=== PATIENT | male | born 1985 | race Hispanic/Latino ===

== ENCOUNTER 2018-01-10 15:37 | Emergency (ER) | payer SELFPAY | END 2018-01-10 16:09 | disposition home or self-care (01) | LOC: EDH 15:37 | DX: L72.9 Follicular cyst of the skin and subcutaneous tissue, unspecified (principal); Z87.891 Personal history of nicotine dependence ==

== ENCOUNTER 2021-07-15 13:27 | Emergency (ER) | payer SELFPAY ==
[~2021-07-15] VITALS: Ht 162.6 cm; Wt 79.4 kg
[2021-07-15 13:29] VITALS: BP 132/76
[2021-07-15] MEDS ORDERED: DOXY-252 PO (14:26)
[2021-07-15] MEDS ORDERED: AZITHROMYCIN 250 MG TABLET PO ONE (14:30)
[2021-07-15] MEDS ORDERED: CEFTRIAXONE 500MG VIAL IM ONE (14:30)
[2021-07-15] MEDS ORDERED: LIDOCAINE HCL-MPF 1% 2ML VIAL ONE (14:39)
== END 2021-07-15 14:53 | disposition home or self-care (01) ==
LOC: EDH 13:27
DX: R30.0 Dysuria (principal); R36.9 Urethral discharge, unspecified; Z72.51 High risk heterosexual behavior; Z20.2 Contact with and (suspected) exposure to infections with a predominantly sexual mode of transmission
CPT/HCPCS: 96372; 99283; J3490; J0696

== ENCOUNTER 2023-04-13 17:45 | Emergency (ER) | payer OTHER ==
[~2023-04-13] VITALS: Ht 167.6 cm; Wt 68.0 kg
[~2023-04-13 17:45] MED LIST: DOXY-252 PO
[2023-04-13 18:36] LABS: BASOPHILS % (AUTO) 0.5 % (0.0-5.0); EOSINOPHILS % (AUTO) 1.4 % (0.0-8.0); HEMATOCRIT 42.4 % (42-54); LYMPHOCYTES % (AUTO) 12.5 % (21.0-51.0); MEAN CORPUSCULAR HEMOGLOBIN 30.8 pg (27.0-33.0); MEAN CORPUSCULAR HGB CONC 34.7 g/dL (32.0-36.0); MEAN CORPUSCULAR VOLUME 88.9 fL (79-99); MONOCYTES % (AUTO) 10.6 % (3.0-13.0); NEUTROPHILS % (AUTO) 74.8 % (40.0-77.0); PLATELET COUNT (AUTO) 162 K/uL (130-400); RED BLOOD CELL COUNT(AUTO) 4.77 MIL/uL (4.50-6.20); RED CELL DISTRIBUTION WIDTH 11.9 % (11.0-15.5); WHITE BLOOD COUNT (AUTO) 5.5 K/uL (4.8-10.8)
[2023-04-13 18:57] LABS: POTASSIUM 3.2 mmol/L (3.5-5.1)
[2023-04-13 19:09] LABS: ALBUMIN 3.3 g/dL (3.5-5.0)
[2023-04-13] MEDS ORDERED: 0.9%NACL 1000ML 1,000 ML IV ONE (19:58)
[2023-04-13] MEDS ORDERED: CEFTRIAXONE 1G VIAL IVPB ONE (20:00)
[2023-04-13] MEDS ORDERED: PANTOPRAZOLE 40 MG/VIAL IVP ONE (20:00)
[2023-04-13] MEDS ORDERED: IOHEXOL 350 MG/ML 100ML INFUS..BTL IV ONE (20:11)
[2023-04-13 21:59] VITALS: BP 109/63
== END 2023-04-13 22:00 | disposition home or self-care (01) ==
LOC: EDH 17:45
DX: K52.9 Noninfective gastroenteritis and colitis, unspecified (principal)
CPT/HCPCS: 99285; 74177; 96365; 96375; 82270; 80053; 83690; 85025; 36415; J7030; J0696; C9113; Q9967